=== PATIENT | male | born 1975 | race Caucasian/White ===

== ENCOUNTER 2021-10-17 06:37 | Day surgery (SDC) | payer OTHER ==
[~2021-10-17] VITALS: Ht 175.3 cm; Wt 85.4 kg
[~2021-10-17 06:37] MED LIST: ALBU8HFA IH; AMLO2.5T96 PO; ASPI-1450 PO; ATOR20TA86 PO; CHOL-35 PO; MECL25TA39 PO; METO-296 PO; OMEP20 PO; SODIUM CHLORIDE 0.9% 1,000 ML IV ONE; SUCR1TAB28 PO
[2021-10-17] MEDS ORDERED: SODIUM BICARBONATE 50 MEQ/50 ML VIAL ONE (07:27)
[2021-10-17] MEDS ORDERED: LIDOCAINE/PF 1% 30 ML VIAL ONE (07:27)
[2021-10-17] MEDS ORDERED: IOHEXOL 300 MG/ML 50 ML VIAL ONE (07:27)
[2021-10-17] MEDS ORDERED: IOHEXOL 300 MG/ML 150 ML VIAL ONE (07:27)
[2021-10-17] MEDS ORDERED: IOHEXOL 300 MG/ML 100 ML VIAL ONE (07:27)
[2021-10-17] MEDS ORDERED: FentaNYL CITRATE PF 100 MCG/2 ML VIAL ONE ×2 (07:47→08:04)
[2021-10-17] MEDS ORDERED: MIDAZOLAM HCL 2 MG/2 ML VIAL ONE ×2 (07:47→08:05)
[2021-10-17 07:49] VITALS: BP 130/81
[2021-10-17] MEDS ORDERED: DIAZEPAM 5 MG TABLET PO ONE (08:00)
[2021-10-17] MEDS ORDERED: ASPIRIN 81 MG CHEWABLE TABLET PO ONE (08:00)
[2021-10-17] MEDS ORDERED: DiphenhydrAMINE HCL 50 MG CAPSULE PO ONE (08:00)
[2021-10-17] MEDS ORDERED: HEPARIN SODIUM 1000 UNITS/NS 1,000 ML IARTER ONE (08:15)
[2021-10-17] MEDS ORDERED: MIDAZOLAM HCL 2 MG/2 ML VIAL IVP ONE (08:15)
[2021-10-17] MEDS ORDERED: LIDOCAINE 1% 30 ML/SOD BICARB 8.4% 4 ML SQ ONE (08:15)
[2021-10-17] MEDS ORDERED: FentaNYL CITRATE PF 100 MCG/2 ML VIAL IVP ONE (08:15)
[2021-10-17] MEDS ORDERED: IOHEXOL 300 MG/ML 150 ML VIAL IARTER ONE (08:15)
[2021-10-17 08:33] VITALS: BP 105/81
== END 2021-10-17 12:35 | disposition home or self-care (01) ==
LOC: CATHLAB 06:37
PROVIDERS: ATTEND Internal Medicine Interventional Cardiology
DX: R07.89 Other chest pain (principal); I10 Essential (primary) hypertension; E78.5 Hyperlipidemia, unspecified; M19.90 Unspecified osteoarthritis, unspecified site; Z79.899 Other long term (current) drug therapy; Z88.8 Allergy status to other drugs, medicaments and biological substances
CPT/HCPCS: 93005; 93458; 99152; C1760; J2250; J3010; J3490 ×2; J7030; Q9967